=== PATIENT | female | born 1955 | race Caucasian/White ===

== ENCOUNTER 2019-04-08 06:56 | Day surgery (SDC) | payer OTHER ==
[~2019-04-08] VITALS: Ht 154.9 cm; Wt 95.9 kg
[2019-04-08] MEDS ORDERED: OMEPRAZOLE20 MG (07:38)
[2019-04-08] MEDS ORDERED: FLUV50 (07:39)
[2019-04-08] MEDS ORDERED: Pravachol40 MG (07:39)
[2019-04-08] MEDS ORDERED: LOSARTAN-HCTZ1 EACH (07:39)
[2019-04-08] MEDS ORDERED: METF500 (07:40)
[2019-04-08] MEDS ORDERED: Ferrous Sulfat325 M2 (07:41)
[2019-04-08] MEDS ORDERED: BACL10 (07:42)
[2019-04-08] MEDS ORDERED: LEVSOD125 (07:42)
[2019-04-08] MEDS ORDERED: METPHE10 (07:42)
[2019-04-08] MEDS ORDERED: MELO7.5 (07:43)
[2019-04-08] MEDS ORDERED: QVAR REDIHALE10.6 G1 (07:43)
== END 2019-04-08 08:57 | disposition home or self-care (01) ==
LOC: ORSCSDS 06:56
PROVIDERS: Internal Medicine Gastroenterology
PROC: 0DBL8ZX Excision of Transverse Colon, Via Natural or Artificial Opening Endoscopic, Diagnostic (ICD-10-PCS; principal; 2019-04-08 08:00)
DX: R19.7 Diarrhea, unspecified (principal); D12.3 Benign neoplasm of transverse colon; K57.30 Diverticulosis of large intestine without perforation or abscess without bleeding; K64.8 Other hemorrhoids; K62.5 Hemorrhage of anus and rectum; E03.9 Hypothyroidism, unspecified; E11.9 Type 2 diabetes mellitus without complications; E78.5 Hyperlipidemia, unspecified; F32.9 Major depressive disorder, single episode, unspecified; F84.5 Asperger's syndrome; F42.9 Obsessive-compulsive disorder, unspecified; F43.10 Post-traumatic stress disorder, unspecified; F90.9 Attention-deficit hyperactivity disorder, unspecified type; I10 Essential (primary) hypertension; J45.909 Unspecified asthma, uncomplicated; M79.7 Fibromyalgia; G47.33 Obstructive sleep apnea (adult) (pediatric); E66.9 Obesity, unspecified; Z68.41 Body mass index [BMI] 40.0-44.9, adult
CPT/HCPCS: 82947; 88305; J0330; J0461; J2405; J2704; J7120

== ENCOUNTER 2021-04-13 09:15 | Day surgery (SDC) | payer OTHER ==
[~2021-04-13] VITALS: Ht 154.9 cm; Wt 88.1 kg
[~2021-04-13 09:15] MED LIST: BACL10; BACL10 PO; C-500500 M1 PO; FERSU300 PO; FLUV50; FLUV50 PO; FOLI1 PO; Ferrous Sulfat325 M2; LEVSOD100 PO; LEVSOD125; LOSARTAN-HCTZ1 EACH; LOSARTAN-HCTZ1 EACH PO; MAGNESIUM OXID500 MG PO; MELO7.5; MELO7.5 PO; METF500; METF500 PO; METPHE10; METPHE10 PO; OMEGA 3 PO; OMEP20ER PO; OMEPRAZOLE20 MG; ONE A DAY PREN1 EACH PO; PRAV20 PO; Pravachol40 MG; QVAR REDIHALE10.6 G1; VITAMIN B125000 MC1 PO; VITAMIN D310 MC4 PO; [UNRECOGNIZED DRUG - OTHER] PO
--- NOTE | 2021-04-13 10:31 | NUR ---
Ambulatory in Day Surgery WITH SISTER KATERINA. History, Chart, Medications and Allergies reviewed before start of procedure. Lungs clear T/O to Auscultation. Patient confirms NPO status and agrees with scheduled surgery. Pre-Op teaching done. Pt verbalizes understanding. PT HAS DENTURES, BUT REMOVED AT HOME. HEARING AIDS REMOCED AND LEFT AT HOME.
--- NOTE | 2021-04-13 18:53 | NUR ---
SHIFT SUMMARY PT STATUS POST FOR R TOTAL KNEE. AQUACEL AND ANT WRAP DRESSING TO R LEG CDI. TEDS AND POLAR PACK IN PLACE WELL. PT UP TO THE BSC WITH A 2 ASSIST. WHEN PT GOT UP IT WAS FOUND THAT SHE IS STILL A LITTLE NUMB FROM THE SPINAL. HOWEVER, THE PATIENT WAS STILL ABLE TO VOID. PT HAS SENSATION IN HER LEGS BUT NO PAIN AT THIS TIME. PT IS CURRENTLY UP IN THE RECLINER WITH HER CALL LIGHT IN REACH. VSS. WILL REPORT TO MARIBETH HARPER.
[2021-04-14 04:39] LABS: BASOPHILS ABSOLUTE AUTO 0.01 K/mm3 (0.00-0.23); BASOPHILS PERCENT AUTO 0 % (0-2); EOSINOPHILS ABSOLUTE AUTO 0.17 K/mm3 (0.00-0.68); EOSINOPHILS PERCENT AUTO 3 % (0-6); Hematocrit 33.6 % (33.0-51.0); Hemoglobin 11.1 g/dL (11.5-16.0); IMMATURE GRAN ABSOLUTE AUTO 0.02 K/mm3 (0.00-0.10); IMMATURE GRAN PERCENT AUTO 0 % (0-1); LYMPHOCYTES ABSOLUTE AUTO 1.82 K/mm3 (0.84-5.20); LYMPHOCYTES PERCENT AUTO 27 % (21-46); MONOCYTES ABSOLUTE AUTO 0.46 K/mm3 (0.16-1.47); MONOCYTES PERCENT AUTO 7 % (4-13); Mean Corpuscular HGB 30.3 pg (26.0-34.0); Mean Corpuscular Volume 92 fL (80-100); NEUTROPHILS ABSOLUTE AUTO 4.26 K/mm3 (1.96-9.15); NEUTROPHILS PERCENT AUTO 63 % (41-73); Platelet Count 74 K/mm3 (150-400); RDW Coefficient Variation 13.4 % (11.7-14.2); RDW Standard Deviation 44.5 fL (35.1-46.3); Red Blood Cell Count 3.66 M/mm3 (3.80-5.20); White Blood Cell Count 6.74 K/mm3 (4.00-11.30)
[2021-04-14 05:38] LABS: Anion Gap 8 mmol/L (6-16); Blood Urea Nitrogen 27 mg/dL (8-24); Bun/Creatinine Ratio 36.7 (12.0-20.0); CO2, Blood 28 mmol/L (21-32); Calcium, Blood 8.6 mg/dL (8.5-10.1); Chloride, Blood 103 mmol/L (98-108); Creatinine, Blood 0.74 mg/dL (0.40-1.00); Glomerular Filtration Rate >60 (60-); Glucose, Blood 143 mg/dL (70-99); Magnesium, Blood 1.8 mg/dL (1.6-2.4); Potassium, Blood 3.8 mmol/L (3.5-5.5); Sodium, Blood 139 mmol/L (136-145)
--- NOTE | 2021-04-14 07:23 | NUR ---
SHIFT SUMMARY POD 1 R TKA, A/OX 4, VSS, TOLERATING PO, AMBULATING, VOIDING, PAIN WELL MANAGED, NO ACUTE EVENTS THIS SHIFT. CALL LIGHT IN REACH, WILL CTM AND REPORT TO DAY RN.
[2021-04-14] MEDS ORDERED: Aspir 8181 MG PO (09:07)
[2021-04-14] MEDS ORDERED: OXYC5 PO (09:07)
[2021-04-14] MEDS ORDERED: PROM25 PO (09:08)
[2021-04-14] MEDS ORDERED: SULTRIDS PO (09:09)
--- NOTE | 2021-04-14 14:21 | NUR ---
DISCHARE PATIENT DISCHARGED IN STABLE CONDITION; PERIPHERAL IV REMOVED. PATIENT VERBALIZED UNDERSTANDING OF DICHARGE INSTRUCTIONS. ALL BELONGINGS PACKED AND TAKEN WITH PATIENT, PATIENT TAKEN TO FRONT LOBBY VIA WHEELCHAIR
--- NOTE | 2021-04-15 14:04 | NUR ---
04/15/21 1404 Silviano Hanley VERRIFICATION CORRECT IMPLANTS
== END 2021-04-14 12:59 | disposition home or self-care (01) ==
LOC: ORSCMMR 09:15 → ORD 10:30 → SURS 14:18 → ORSCMMR 04-14 12:59
PROVIDERS: Orthopaedic Surgery
PROC: 0SRC0J9 Replacement of Right Knee Joint with Synthetic Substitute, Cemented, Open Approach (ICD-10-PCS; principal; 2021-04-13 10:30)
PROC: 8E0YXBZ Computer Assisted Procedure of Lower Extremity (ICD-10-PCS; principal; 2021-04-13 10:30)
DX: M17.11 Unilateral primary osteoarthritis, right knee (principal); I10 Essential (primary) hypertension; E78.5 Hyperlipidemia, unspecified; G47.33 Obstructive sleep apnea (adult) (pediatric); J44.9 Chronic obstructive pulmonary disease, unspecified; E11.9 Type 2 diabetes mellitus without complications; E66.01 Morbid (severe) obesity due to excess calories; Z68.36 Body mass index [BMI] 36.0-36.9, adult; Z79.899 Other long term (current) drug therapy
CPT/HCPCS: 36415; 73560-RT; 80048; 82947; 83735; 85025; 97116; 97161; A9270; C1713; C1776; J0171; J0690; J0735; J1815; J1885; J2250; J2704; J2795; J3010; J7120

== ENCOUNTER → 2022-08-31 | Outpatient (CLI) | payer OTHER ==
[~2022-08-31] MED LIST changes: +Aspir 8181 MG PO; +OXYC5 PO; +PROM25 PO; +SULTRIDS PO
[2022-08-31 12:53] LABS: Creatinine, Urine Random 98.2 mg/dL (27.00-270.00)
[2022-08-31 12:56] LABS: Microalb/Creat Ratio UR, Rand 9.338 mg/g (0.000-30.000); Microalbumin, Random Urine 9.17 mg/L (0.000-20.000)
== END | disposition home or self-care (01) ==
LOC: LAB SHORT 10:30 → LAB 10:30
PROVIDERS: Physician Assistant
DX: E11.65 Type 2 diabetes mellitus with hyperglycemia (principal)
CPT/HCPCS: 82043; 82570

== ENCOUNTER 2024-05-20 09:54 | Day surgery (SDC) | payer OTHER ==
[~2024-05-20] VITALS: Ht 154.9 cm; Wt 86.3 kg
[~2024-05-20 09:54] MED LIST changes: +Lactated Ringer's 1,000 ML IV ONE; +propofoL 50 ML IV ONE
[2024-05-20] MEDS ORDERED: ALOGLIPTIN25 M7 (11:10)
[2024-05-20] MEDS ORDERED: CARBIDOPA-LEVO1 EA19 (11:10)
[2024-05-20] MEDS ORDERED: VILAZODONE HCL40 MG (11:11)
[2024-05-20] MEDS ORDERED: PIOG15 (11:11)
[2024-05-20] MEDS ORDERED: Prilosec Otc20 MG (11:11)
[2024-05-20] MEDS ORDERED: VILAZODONE HCL20 MG (11:12)
[2024-05-20] MEDS ORDERED: Midazolam HCl 1MG / ML 2ML Vial ONE (11:31)
[2024-05-20] MEDS ORDERED: propofoL 50 ML IV ONE (11:33)
[2024-05-20] MEDS ORDERED: Ipratropium/Albuterol SulF 2.5-0.5MG/3 ML Amp ONE (11:46)
--- NOTE | 2024-05-20 11:56 | NUR ---
05/20/24 1156 LUDA HERNANDEZ PT STATES ALSO RT KNEE SX 2020 NOT PREV STATED. END NOTE RDS
[2024-05-20] MEDS ORDERED: Lactated Ringer's 1,000 ML IV ONE (12:09)
[2024-05-20 13:49] VITALS: BP 127/86
== END 2024-05-20 13:45 | disposition home or self-care (01) ==
LOC: ORSCSDS 09:54
PROVIDERS: Surgery
PROC: 0DBE8ZX Excision of Large Intestine, Via Natural or Artificial Opening Endoscopic, Diagnostic (ICD-10-PCS; principal; 2024-05-20 11:30)
PROC: 0DBL8ZX Excision of Transverse Colon, Via Natural or Artificial Opening Endoscopic, Diagnostic (ICD-10-PCS; principal; 2024-05-20 11:30)
DX: R19.7 Diarrhea, unspecified (principal); R15.9 Full incontinence of feces; R15.2 Fecal urgency; K59.00 Constipation, unspecified; Z86.0100 Personal history of colon polyps, unspecified; R10.9 Unspecified abdominal pain; D12.3 Benign neoplasm of transverse colon; K51.40 Inflammatory polyps of colon without complications; B80 Enterobiasis; I10 Essential (primary) hypertension; E78.5 Hyperlipidemia, unspecified; K21.9 Gastro-esophageal reflux disease without esophagitis; G20.A1 Parkinson's disease without dyskinesia, without mention of fluctuations; E03.9 Hypothyroidism, unspecified; E11.9 Type 2 diabetes mellitus without complications; E66.01 Morbid (severe) obesity due to excess calories; Z68.35 Body mass index [BMI] 35.0-35.9, adult; Z79.84 Long term (current) use of oral hypoglycemic drugs; Z79.899 Other long term (current) drug therapy; F84.5 Asperger's syndrome; G47.33 Obstructive sleep apnea (adult) (pediatric)
CPT/HCPCS: 82947; 88305; J2250; J2704; J7120

== ENCOUNTER 2025-02-28 16:56 | Emergency (ER) | payer OTHER ==
[~2025-02-28] VITALS: Ht 154.9 cm; Wt 78.0 kg
[~2025-02-28 16:56] MED LIST changes: +ALOGLIPTIN25 M7; +CARBIDOPA-LEVO1 EA19; -Lactated Ringer's 1,000 ML IV ONE; +PIOG15; +Prilosec Otc20 MG; +VILAZODONE HCL20 MG; +VILAZODONE HCL40 MG; -propofoL 50 ML IV ONE
[2025-02-28 17:37] LABS: Source, Urine Clean Catch
[2025-02-28 17:40] LABS: Bilirubin, Urine Neg (Neg); Color, Urine Yellow (P-Yellow); Glucose Qualitative, Urine 4+ (Neg); Ketones, Urine Neg (Neg); Leukocyte Esterase, Urine Neg (Neg); Protein, Urine 1+ (Neg); Specific Gravity, Urine 1.010 (1.003-1.022); Urobilinogen, Urine 1+ (Normal)
[2025-02-28 17:58] LABS: BASOPHILS ABSOLUTE AUTO 0.02 K/mm3 (0.00-0.23); BASOPHILS PERCENT AUTO 0 % (0-2); EOSINOPHILS ABSOLUTE AUTO 0.14 K/mm3 (0.00-0.68); EOSINOPHILS PERCENT AUTO 2 % (0-6); Hematocrit 43.0 % (33.0-51.0); Hemoglobin 14.1 g/dL (11.5-16.0); IMMATURE GRAN ABSOLUTE AUTO 0.02 K/mm3 (0.00-0.10); IMMATURE GRAN PERCENT AUTO 0 % (0-1); LYMPHOCYTES ABSOLUTE AUTO 2.20 K/mm3 (0.84-5.20); LYMPHOCYTES PERCENT AUTO 35 % (21-46); MONOCYTES ABSOLUTE AUTO 0.23 K/mm3 (0.16-1.47); MONOCYTES PERCENT AUTO 4 % (4-13); Mean Corpuscular HGB Conc 32.8 g/dL (31.5-36.5); Mean Corpuscular Volume 93 fL (80-100); NEUTROPHILS ABSOLUTE AUTO 3.60 K/mm3 (1.96-9.15); NEUTROPHILS PERCENT AUTO 58 % (41-73); NRBC ABSOLUTE 0.00 K/mm3 (0.00-0.02); NRBC Auto 0.0 /100 WBC (0.0-0.2); Platelet Count 112 K/mm3 (150-400); RDW Coefficient Variation 13.9 % (11.7-14.2); RDW Standard Deviation 46.6 fL (35.1-46.3)
[2025-02-28 18:16] LABS: Alanine Aminotransfer (ALT/SGP 26.0 U/L (12-78); Albumin, Blood 4.0 g/dL (3.4-5.0); Albumin/Globulin Ratio 1.1 (0.8-1.8); Anion Gap 9.0 mmol/L (3-11); Aspartate Aminotrans (AST/SGOT 21.0 U/L (12-37); Bilirubin, Total 0.3 mg/dL (0.1-1.0); Blood Urea Nitrogen 20.0 mg/dL (8-24); CO2, Blood 30.0 mmol/L (21-32); Calcium, Blood 9.3 mg/dL (8.5-10.1); Chloride, Blood 102.0 mmol/L (98-108); Creatinine, Blood 0.73 mg/dL (0.40-1.00); Globulin, Blood 3.5 g/dL (2.2-4.0); Glucose, Blood 158.0 mg/dL (70-99); Potassium, Blood 3.9 mmol/L (3.5-5.5); Sodium, Blood 137.0 mmol/L (136-145); Total Protein, Blood 7.5 g/dL (6.4-8.2)
[2025-02-28 19:45] VITALS: BP 156/61
== END 2025-02-28 20:15 | disposition home or self-care (01) ==
LOC: ER 16:56
PROVIDERS: Emergency Medicine
DX: S39.011A Strain of muscle, fascia and tendon of abdomen, initial encounter (principal); X58.XXXA Exposure to other specified factors, initial encounter; Z79.84 Long term (current) use of oral hypoglycemic drugs; Z79.899 Other long term (current) drug therapy; Z88.5 Allergy status to narcotic agent; Z88.7 Allergy status to serum and vaccine; Z91.030 Bee allergy status; Z88.8 Allergy status to other drugs, medicaments and biological substances
CPT/HCPCS: 74177; 80053; 85025; 99284-25; Q9967